=== PATIENT | male | born 1960 | race Caucasian/White ===

== ENCOUNTER 2020-12-19 18:32 | Emergency (ER) | payer BC, SELFPAY ==
[2020-12-19] MEDS ORDERED: Sodium Chloride 0.9% 1,000 ML ONE (18:49)
[2020-12-19] MEDS ORDERED: Loperamide HCl 2 MG CAP ONE (18:49)
== END 2020-12-19 20:34 | disposition home or self-care (01) ==
LOC: NAV ERS 18:32
DX: B34.9 Viral infection, unspecified (principal)
CPT/HCPCS: 93005; 96372; J0500; J7050